=== PATIENT | male | born 1975 | race Caucasian/White ===

== ENCOUNTER 2019-11-23 23:33 | Emergency (ER) | payer OTHER ==
[~2019-11-23] VITALS: Ht 157.5 cm; Wt 77.1 kg
[2019-11-23 23:34] VITALS: BP 164/113
[2019-11-24 00:34] LABS: ABSOLUTE NEUTROPHILS 7.7 thou/uL (1.4-8.2); BASOPHILS 0.9 % (0.0-2.0); EOSINOPHILS 0.3 % (0.0-3.0); HEMATOCRIT 41.9 % (42.0-52.0); HEMOGLOBIN 14.3 gm/dL (14.0-18.0); LYMPHOCYTES 11.5 % (24.0-44.0); MCH 33.1 pg (26.0-34.0); MCV 97.2 fL (80.0-100.0); MONOCYTES 11.6 % (1.0-8.0); PLATELET COUNT 195 thou/uL (150-400); POLYS 75.7 % (36.0-66.0); RBC 4.31 mil/uL (4.50-6.00); RDW 13.6 % (10.5-14.5); WBC 10.2 thou/uL (4.0-11.0)
[2019-11-24 00:35] LABS: CALCIUM 8.9 mg/dL (8.5-10.1); CREATININE 1.1 mg/dL (0.7-1.3); POTASSIUM 3.4 mmol/L (3.5-5.1)
[2019-11-24 00:41] LABS: ALBUMIN 3.9 g/dL (3.4-5.0); DIRECT BILIRUBIN 0.5 mg/dL (<0.1-0.2); TOTAL BILIRUBIN 1.1 mg/dL (<0.1-1.0); TOTAL PROTEIN 8.5 g/dL (6.4-8.2)
[2019-11-24 01:58] LABS: AMP/METHAMP Negative (Negative); BARBITURATES Negative (Negative); BENZODIAZEPINES Negative (Negative); COCAINE Negative (Negative); METHADONE Negative (Negative); OPIATES Negative (Negative); PCP Negative (Negative)
--- NOTE | 2019-11-24 02:14 | NUR ---
NOTICED HR UP TO 150'S , CHECKED ON PT FOUND HIM SEIZING EYES CLOSED, TEETH CLENCED, ALL EXTREMITIES RIGID, ALSO BLEEDING FROM MOUTH EPISODE LASTED LESS THAN A MINUTE.DR SANABRIA WAS NOTIFIED ATIVAN I MG GIVEN . PT SOMEWHAT RESTLESS FOLLOWING SEIZURE.
--- NOTE | 2019-11-24 02:25 | NUR ---
PT HAD INCONTINENT OF URINE FOLLOWING SEIZURE, PT RESTLESS AND CONFUSED, UNABLE TO HOLD STILL FOR CT OF HEAD, ANOTHER 1MG LOREZEPAM GIVEN PER ORDERS. CT OF HEAD COMPLETED.
[2019-11-24 03:34] LABS: APTT 25.3 Seconds (24.5-32.8); PROTIME 10.3 Seconds (9.3-11.4)
--- NOTE | 2019-11-24 03:50 | NUR ---
CHARGE NURSE SPOKE PT'S FRIEND KELLY AND GAVE AN UPDATE AND TOLD HER OF PLANS TO TRANSFER PT TO .
--- NOTE | 2019-11-24 04:00 | NUR ---
GAVE REPORT TO KIMBERLY BRUNER AT , PT IS GOING [facility] [facility] ON [address] TO TRANSFER PT.
[2019-11-24 04:10] VITALS: BP 140/98
== END 2019-11-24 04:10 | disposition short-term general hospital (02) ==
LOC: ER 23:33 → EROBS 11-24 02:09 → ER 11-24 02:09
PROVIDERS: Emergency Medicine
DX: I62.9 Nontraumatic intracranial hemorrhage, unspecified (principal); F10.231 Alcohol dependence with withdrawal delirium; Z79.899 Other long term (current) drug therapy